=== PATIENT | female | born 1945 | race Caucasian/White ===

== ENCOUNTER 2021-04-01 11:14 | Emergency (ER) | payer MEDICARE, BC ==
[2021-04-01 11:57] VITALS: TEMP 98
--- NOTE | 2021-04-01 13:04 | ED ---
General Adult HPI - General Chief complaint: Upper Respiratory Infection Stated complaint: Alskristalh sent pt for antibody Time Seen by Provider: 04/01/21 11:50 Source: patient, RN notes reviewed, old records reviewed Mode of arrival: ambulatory Limitations: no limitations - History of Present Illness Initial comments: This is a 75-year-old female presents to the emergency department she is a past medical history significant for diabetes. Patient comes in today because she tested positive at 12.1 for COVID yesterday and her symptoms began 2 days ago. Patient denies any shortness breath or difficulty breathing. She states she has some congestion and low but a scratchy sore throat. Patient denies any chest pain or pressure patient denies any palpitations. Patient denies any abdominal pain. Patient denies nausea vomiting diarrhea. Patient denies any loss of taste or smell - Related Data Allergies Allergy/AdvReac Type Severity Reaction Status Date / Time Penicillins Allergy Unknown Verified 04/01/21 11:57 Review of Systems ROS Statement: Those systems with pertinent positive or pertinent negative responses have been documented in the HPI. ROS Other: All systems not noted in ROS Statement are negative. Past Medical History Past Medical History: Diabetes Mellitus, Hyperlipidemia, Hypertension, Osteoarthritis (OA) Additional Past Medical History / Comment(s): pulmonary fibrosis History of Any Multi-Drug Resistant Organisms: None Reported Past Surgical History: Back Surgery, Cholecystectomy, Orthopedic Surgery Additional Past Surgical History / Comment(s): sigmoidectomy Past Psychological History: No Psychological Hx Reported Smoking Status: Never smoker Past Alcohol Use History: None Reported Past Drug Use History: None Reported General Exam - General Exam Comments Initial Comments: GENERAL: Patient is well-developed and well-nourished. Patient is nontoxic and well- hydrated and is in mild distress. ENT: Neck is soft and supple. No significant lymphadenopathy is noted. Oropharynx is clear. Moist mucous membranes. Neck has full range of motion without eliciting any pain. EYES: The sclera were anicteric and conjunctiva were pink and moist. Extraocular movements were intact and pupils were equal round and reactive to light. Eyelids were unremarkable. PULMONARY: Unlabored respirations. Good breath sounds bilaterally. No audible rales rhonchi or wheezing was noted. CARDIOVASCULAR: There is a regular rate and rhythm without any murmurs gallops or rubs. SKIN: Skin is clear with no lesions or rashes and otherwise unremarkable. NEUROLOGIC: Patient is alert and oriented x3. Cranial nerves II through XII are grossly intact. Motor and sensory are also intact. Normal speech, volume and content. Symmetrical smile. MUSCULOSKELETAL: Normal extremities with adequate strength and full range of motion. LYMPHATICS: No significant lymphadenopathy is noted PSYCHIATRIC: Normal psychiatric evaluation. Limitations: no limitations Course Vital Signs 04/01/21 11:49 Temperature 98 F Pulse Rate 90 Respiratory 22 Rate Blood Pressure 160/77 O2 Sat by Pulse 95 Oximetry Medical Decision Making - Medical Decision Making Patient received monoclonal antibodies and was observed for an hour after the infusion was done Disposition Clinical Impression: COVID-19 Disposition: HOME SELF-CARE Instructions (If sedation given, give patient instructions): Coronavirus Disease 2019 (COVID-19) Additional Instructions: Is patient prescribed a controlled substance at d/c from ED?: No Referrals: Caesar Magallanes MD [Primary Care Provider] - 1-2 days Time of Disposition: 13:04
[2021-04-01] MEDS: BAMLANIVIMAB (EUA) 700 MG, ETESEVIMAB (EUA) 1,400 MG in SODIUM CHLORIDE 0.9% 100 ML IVPB ONE (13:32)
[2021-04-01] MEDS: SODIUM CHLORIDE 0.9% 50 ML IVPB ONE (13:32)
[2021-04-01 13:34] VITALS: BP 174/76; PULSE 77; RESP 20
== END 2021-04-01 15:15 | disposition home or self-care (01) ==
LOC: EC 11:14
DX: U07.1 COVID-19 (principal); E11.9 Type 2 diabetes mellitus without complications; I10 Essential (primary) hypertension; E78.5 Hyperlipidemia, unspecified; M19.90 Unspecified osteoarthritis, unspecified site; Z88.0 Allergy status to penicillin
CPT/HCPCS: 99283; J3490